=== PATIENT | female | born 2000 | race African-American/Black ===

== ENCOUNTER 2020-07-19 13:43 | Outpatient (REF) | payer OTHER, SELFPAY | END 2020-07-19 13:44 | disposition home or self-care (01) | LOC: HO.LAB 13:43 | PROVIDERS: PCP Family Medicine; Visit Provider Internal Medicine | DX: Z20.828 Contact with and (suspected) exposure to other viral communicable diseases (principal) | CPT/HCPCS: C9803; U0003 ==

== ENCOUNTER → 2021-04-03 10:03 | Outpatient (BNVA) | payer SELFPAY | PROVIDERS: PCP Family Medicine | DX: Z76.89 Persons encountering health services in other specified circumstances (principal) ==

== ENCOUNTER → 2022-04-07 09:42 | Outpatient (BNVA) | payer SELFPAY | PROVIDERS: PCP Family Medicine | DX: Z02.83 Encounter for blood-alcohol and blood-drug test (principal) ==